=== PATIENT | female | born 1990 | race Caucasian/White ===

== ENCOUNTER 2020-12-16 06:44 | Inpatient (IN) | payer MEDICAID ==
[~2020-12-16] VITALS: Ht 165.1 cm; Wt 51.4 kg
[2020-12-16 07:22] LABS: CLARITY,URINE CLEAR (Clear); COLOR,URINE YELLOW (Yellow); GLUCOSE, URINE NEGATIVE (Neg); KETONES,URINE TRACE mg/dl (Neg); LEUKOCYTE ESTERASE ,URINE NEGATIVE (Neg); NITRITES, URINE NEGATIVE (Neg); OCCULT BLOOD,URINE SMALL (Neg); PH,URINE 6.5 (4.8-8.0); PROTEIN,URINE NEGATIVE (Neg); URINE HCG NEGATIVE (NEG); UROBILINOGEN,URINE 0.2 E.U/dL (0.2-1.0)
[2020-12-16 07:23] LABS: UA COLLECTION TYPE CLN CATCH MIDSTREAM
[2020-12-16 07:49] LABS: MUCUS STRANDS FEW /LPF (Neg); SQUAMOUS EPITHELIAL CELL,UR FEW /LPF (FEW)
[2020-12-16 07:51] LABS: BACTERIA,URINE FEW /HPF (Neg); RBC,URINE 0-2 /HPF (0-2); SPERM FEW /HPF; WBC,URINE NONE SEEN /HPF (0-4); YEAST FEW /HPF (NEGATIVE)
[2020-12-16] MEDS ORDERED: normal saline 1000ML IV soln IVB ONE (07:55)
[2020-12-16] MEDS ORDERED: ondansetron/PF 4mg/2ml inj IV ONE ×2 (07:55→13:35)
[2020-12-16 07:59] LABS: BASOPHILS % (AUTO) 0.2 % (0-1); EOSINOPHILS % (AUTO) 0.3 % (0-6); HEMATOCRIT 39.6 % (35.0-45.0); HEMOGLOBIN 13.7 g/dl (12.0-16.0); LYMPHOCYTES # (AUTO) 1.1 X10'3 (1.1-4.8); LYMPHOCYTES % (AUTO) 15.7 % (21-51); MEAN CORPUSCULAR HEMOGLOBIN 30.2 PG (27.0-31.0); MEAN CORPUSCULAR HGB CONC 34.4 g/dL (33.0-36.5); MEAN CORPUSCULAR VOLUME 87.6 FL (78-98); MEAN PLATELET VOLUME 7.2 FL (7.4-10.4); MONOCYTES # (AUTO) 0.4 X10'3 (0-0.9); MONOCYTES % (AUTO) 6.5 % (2-12); NEUTROPHILS # (AUTO) 5.3 X10'3 (1.8-7.7); NEUTROPHILS % (AUTO) 77.3 % (42-75); PLATELET COUNT 165 X10'3 (140-440); RED BLOOD COUNT 4.52 X10'6 (4.20-5.60); RED CELL DISTRIBUTION WIDTH 13.6 % (11.5-14.5); WHITE BLOOD COUNT 6.9 X10'3 (4.5-11.0)
[2020-12-16 08:05] LABS: ALANINE AMINOTRANSFERASE 41 U/L (12-78); ALBUMIN 4.1 G/DL (3.4-5.0); ALBUMIN/GLOBULIN RATIO 1.3 (1.1-1.5); ALKALINE PHOSPHATASE 29 IU/L (46-116); ANION GAP 12 (8-16); ASPARTATE AMINO TRANSFERASE 16 U/L (10-37); BILIRUBIN,TOTAL 0.7 MG/DL (0.1-1.0); BLOOD UREA NITROGEN 9 MG/DL (7-18); BUN/CREATININE RATIO 11.3 (6.6-38.0); CHLORIDE 103 MMOL/L (99-107); GLUCOSE 110 MG/DL (70-104); LIPASE 159 U/L (73-393); POTASSIUM 3.4 MMOL/L (3.5-5.1); SODIUM 140 MMOL/L (135-145); TOTAL CARBON DIOXIDE 24.7 MMOL/L (24-32); TOTAL PROTEIN 7.2 G/DL (6.4-8.2); eGFR 84 ML/MIN
[2020-12-16 10:45] LABS: MONOTEST NEGATIVE (Neg)
[2020-12-16] MEDS ORDERED: iohexol 300mg/ml 100ml inj. ONE (11:13)
[2020-12-16] MEDS ORDERED: ondansetron/PF 4mg/2ml inj IV PRN (11:20)
[2020-12-16] MEDS ORDERED: mag hydrox/Alum hydrox/simeth 30ml oral suspension PO PRN (11:20)
[2020-12-16] MEDS: sodium chloride 0.45% 1,000 ML IV SCH ×2 (11:20→13:28)
[2020-12-16] MEDS ORDERED: magnesium hydroxide 30ml (MOM) UD suspension PO PRN (11:20)
[2020-12-16] MEDS ORDERED: acetaminophen 325mg tablet PO PRN (11:20)
[2020-12-16] MEDS ORDERED: BISA10SU96 RC (11:49)
[2020-12-16] MEDS ORDERED: CYCL-1 PO (11:49)
[2020-12-16] MEDS ORDERED: DESO1TAB PO (11:49)
[2020-12-16] MEDS ORDERED: POLY510P31 PO (11:49)
[2020-12-16] MEDS ORDERED: MAGN296S70 PO (11:49)
[2020-12-16] MEDS ORDERED: IBUP-1986 PO (11:49)
[2020-12-16] MEDS ORDERED: ondansetron/PF 4mg/2ml inj IV STA (13:21)
[2020-12-16] MEDS ORDERED: morphine 4 MG/ML inj SYRINge IV STA (13:21)
--- NOTE | 2020-12-16 13:32 | NUR ---
patient screaming, excruciating upper abdominal pain and to chest,ekg stat done,obtained morphine 5mg and zofran 4mg iv.Dr. Maldonado made aware- contacted Dr. Dr. Alvarez,ordered to keep patient npo and to manage pain.
--- NOTE | 2020-12-16 13:34 | NUR ---
patient appeared to be in less pain at this time,still tearful.family at bedside.we will monitor.
[2020-12-16] MEDS ORDERED: fentaNYL/PF 50MCG/1 ML 2ML syringe IV ONE (13:35)
--- NOTE | 2020-12-16 13:55 | NUR ---
patient denies pain at this time.We will monitor.
[2020-12-16] MEDS: acetaminophen 325mg tablet PO SCH ×2 (14:00→20:00)
--- NOTE | 2020-12-16 14:35 | NUR ---
patient asleep we will monitor.
--- NOTE | 2020-12-16 14:58 | NUR ---
pt up in the bathroom.
--- NOTE | 2020-12-16 15:14 | NUR ---
fentanyl and zofran given.upper abdominal pain 01/06.
--- NOTE | 2020-12-16 15:25 | NUR ---
Report received from ED RNPorsha
--- NOTE | 2020-12-16 15:32 | NUR ---
Asked Dr. Lopez's recommendation if patient needing a repeat abdominal ct after sudden onset of severe abdominal pain,Md said as long as patient's vital signs are stable no need for a repeat ct and that Dr. Alvarez will see patient later today.
[2020-12-16 15:45] VITALS: BP 128/78
[2020-12-16] MEDS ORDERED: ketorolac trometh. 30mg/ml inj. IV SCH (16:00)
[2020-12-16 16:31] LABS: BASOPHILS % (AUTO) 0.2 % (0-1); EOSINOPHILS # (AUTO) 0.1 X10'3 (0-0.9); EOSINOPHILS % (AUTO) 1.1 % (0-6); HEMATOCRIT 37.9 % (35.0-45.0); HEMOGLOBIN 13.1 g/dl (12.0-16.0); LYMPHOCYTES % (AUTO) 24.1 % (21-51); MEAN CORPUSCULAR HEMOGLOBIN 30.2 PG (27.0-31.0); MEAN CORPUSCULAR HGB CONC 34.5 g/dL (33.0-36.5); MEAN CORPUSCULAR VOLUME 87.5 FL (78-98); MONOCYTES # (AUTO) 0.6 X10'3 (0-0.9); MONOCYTES % (AUTO) 7.3 % (2-12); NEUTROPHILS # (AUTO) 5.5 X10'3 (1.8-7.7); NEUTROPHILS % (AUTO) 67.3 % (42-75); PLATELET COUNT 189 X10'3 (140-440); RED BLOOD COUNT 4.34 X10'6 (4.20-5.60); RED CELL DISTRIBUTION WIDTH 13.7 % (11.5-14.5); WHITE BLOOD COUNT 8.1 X10'3 (4.5-11.0)
[2020-12-16] MEDS ORDERED: LORazepam 2 mg/ml vial IV ONE (16:55)
--- NOTE | 2020-12-16 18:15 | NUR ---
Patient in room [facility]. I have received report from KIM THOMPSON and had the opportunity to ask questions and assume patient care. Addendum: 12/17/20 at 0136 by Maryellen Varghese RN Amended: Links added.
--- NOTE | 2020-12-16 18:20 | NUR ---
Problems reprioritized. Patient report given, questions answered & plan of care reviewed with DONNA Bojorquez.
[2020-12-16] MEDS ORDERED: ringers solution, lacted 1,000 ML IV ONE (19:20)
--- NOTE | 2020-12-16 20:00 | NUR ---
pt very anxious aware going to surgery tomorrow with Dr Alvarez. orders recievd from him. pt did not want to take the tylenol but wanted the Ativan and iv Dilaudid for the pain. gave those to her. noted abd distended and pt stated uncomfortable.
[2020-12-16] MEDS: HYDROmorphone inj. 0.5 MG/0.5 ML DISP.SYRIN IV PRN (20:01)
[2020-12-16] MEDS: LORazepam 2 mg/ml vial IV PRN (20:01)
[2020-12-16] MEDS: dextrose 5%-lactated ringers 1,000 ML IV SCH (20:11)
--- NOTE | 2020-12-16 22:00 | NUR ---
pt resting eyes closed without s&s of distress at this time.
[2020-12-16 23:57] VITALS: BP 106/64
[2020-12-17] VITALS (22 sets, daily range): BP systolic 101–136; BP diastolic 57–90
[2020-12-17] MEDS: acetaminophen 325mg tablet PO SCH ×4 (02:00→19:22)
[2020-12-17] MEDS: LORazepam 2 mg/ml vial IV PRN ×3 (02:01→19:23)
[2020-12-17] MEDS: HYDROmorphone inj. 0.5 MG/0.5 ML DISP.SYRIN IV PRN ×2 (02:01→09:19)
[2020-12-17] MEDS: dextrose 5%-lactated ringers 1,000 ML IV SCH ×2 (04:36→14:15)
--- NOTE | 2020-12-17 05:25 | NUR ---
pt taken to the shower washed her hair. then when back to the room vitals done, lab in to draw her labs and abd araseli wiped. completed by 0550.
[2020-12-17 06:07] LABS: HEMOGLOBIN 13.5 g/dl (12.0-16.0); MEAN CORPUSCULAR HEMOGLOBIN 30.1 PG (27.0-31.0); MEAN CORPUSCULAR HGB CONC 34.5 g/dL (33.0-36.5); MEAN CORPUSCULAR VOLUME 87.3 FL (78-98); MEAN PLATELET VOLUME 6.9 FL (7.4-10.4); PLATELET COUNT 187 X10'3 (140-440); RED BLOOD COUNT 4.47 X10'6 (4.20-5.60); RED CELL DISTRIBUTION WIDTH 13.7 % (11.5-14.5); WHITE BLOOD COUNT 6.7 X10'3 (4.5-11.0)
--- NOTE | 2020-12-17 06:15 | NUR ---
Problems reprioritized. Patient report given, questions answered & plan of care reviewed with LIZZ THOMPSON. Addendum: 12/17/20 at 0616 by Maryellen Varghese RN Amended: Links added.
[2020-12-17 06:18] LABS: ALBUMIN 3.7 G/DL (3.4-5.0); ANION GAP 7 (8-16); BLOOD UREA NITROGEN 3 MG/DL (7-18); BUN/CREATININE RATIO 3.3 (6.6-38.0); CALCIUM 8.5 MG/DL (8.5-10.1); CHLORIDE 107 MMOL/L (99-107); CREATININE 0.91 MG/DL (0.40-0.90); GLUCOSE 99 MG/DL (70-104); POTASSIUM 3.7 MMOL/L (3.5-5.1); SODIUM 141 MMOL/L (135-145); eGFR 73 ML/MIN
--- NOTE | 2020-12-17 06:18 | NUR ---
Problems reprioritized. Patient report given, questions answered & plan of care reviewed with LIZZ THOMPSON. Addendum: 12/17/20 at 0619 by Maryellen Varghese RN Amended: Links added.
--- NOTE | 2020-12-17 06:41 | NUR ---
Patient in room [facility]. I have received report from Maryellen THOMPSON and had the opportunity to ask questions and assume patient care.
[2020-12-17] MEDS ORDERED: BUPIVAcaine/PF 2.5 mg/ml (0.25%) 30ml vial ONE (13:45)
[2020-12-17] MEDS ORDERED: LIDOcaine 1% 30ml preserv. free vial ONE (13:45)
[2020-12-17] MEDS ORDERED: midazolam 1 mg/ML 2ml injection ONE (14:10)
[2020-12-17] MEDS ORDERED: fentaNYL /PF 50mcg/ml 5ml ampule ONE (14:10)
[2020-12-17] MEDS ORDERED: LIDOcaine 2% (20mg/ml) 5ml vial ONE (14:18)
[2020-12-17] MEDS ORDERED: propofol inj 20 ML IV ONE (14:18)
[2020-12-17] MEDS ORDERED: rocuronium 10mg/ml inj IV ONE (14:18)
[2020-12-17] MEDS ORDERED: ondansetron/PF 4mg/2ml inj ONE (14:23)
[2020-12-17] MEDS ORDERED: ceFAZolin 1000mg inj ONE ×2 (14:31)
[2020-12-17] MEDS ORDERED: morphine 2 MG/ML inj. syringe IV PRN (14:55)
[2020-12-17] MEDS ORDERED: ondansetron/PF 4mg/2ml inj IV PRN ×2 (14:55→16:50)
[2020-12-17] MEDS ORDERED: meperidine/PF 25mg/ml syringe IV PRN ×2 (14:55)
[2020-12-17] MEDS ORDERED: proCHLORperazine 10 MG/2 ml inj IV PRN (14:55)
[2020-12-17] MEDS ORDERED: ringers solution, lacted 1,000 ML IV SCH (14:55)
[2020-12-17] MEDS ORDERED: morphine 4 MG/ML inj SYRINge IV PRN (14:55)
[2020-12-17] MEDS ORDERED: INDOCYANINE GREEN 25 MG/10 ML VIAL IV ONE (14:59)
--- NOTE | 2020-12-17 16:48 | NUR ---
Received from OR via BED, accompanied by Anesthesiologist NAS and report given by Anesthesiolgist. PT. ARRIVED AEAKE AND TALKING, O2 AT 10 L VIA MASK. REPORTS PAIN 10/10 IN ABDOMEN AND SHOULDER. PRN DEMEROL GIVEN ORDERED. IV IN R. FA 20 G CDI. LR INFUSING AT 100 ML/HR. FC DRAINING TO GRAVITY WITH 150 ML CLEAR YELLOW URINE. JOSE DRAIN IN L. SIDE OF ABDOMEN WITH BANDAID FOR DRESSING. 3 OTHER INCISION SITES WITH DERMABOND ON ABDOMEN. NO DRAINAGE NOTED. VSS. MOVES ALL EXTREMITIES WITH SENSATION INTACT. PALPABLE PULSES IN ALL EXTREMITIES. Addendum: 12/17/20 at 1719 by Carito Denis RN Amended: Links added.
[2020-12-17] MEDS: HYDROmorph./NS 0.2 mg/ml CADD 100 ML IV SCH ×5 (16:50→23:00)
[2020-12-17] MEDS ORDERED: CADD PCA waste documentation MC PRN (16:50)
[2020-12-17] MEDS ORDERED: zolpidem 5mg tablet PO PRN (16:50)
[2020-12-17] MEDS ORDERED: naloxone 0.4 mg/ml inj IV PRN (16:50)
[2020-12-17] MEDS: meperidine/PF 25mg/ml syringe IV PRN ×2 (16:58→17:20)
[2020-12-17] MEDS ORDERED: acetaminophen 1,000mg/100ml IV 100 ML IV SCH (17:24)
--- NOTE | 2020-12-17 17:58 | NUR ---
REPORTED CALLED TO LIZZ RN. PT. HAS MET DC CRITERIA. PAIN 10/07. CADD PUMP IN PLACE AND FUNCTIONING. PT. EDUCATION GIVEN. FC DRAINING TO GRAVITY 250 ML CLEAR YELLOW URINE NOTED. JOSE DRAIN IN PLACE SCANT DRAINAGE NOTED. INCISION SITES CDI, NO DRAINAGE NOTED. LR INFUSING AT 100 ML/HR. TYLENOL 1000MG GIVEN EARLIER ALONG WITH 2 DOSES 25 MG DEMEROL. O2 AT 2 L NC FOR COMFORT. PT. VSS. PT. TOLERATED TRANSFER WELL. HAND OFF TO LIZZ. BED IN LOWEST POSITION. SIDE RAILS X 2. CALL LIGHT IN REACH. MOM AT BEDSIDE. Addendum: 12/17/20 at 1813 by Carito Denis RN Amended: Links added.
--- NOTE | 2020-12-17 18:48 | NUR ---
Problems reprioritized. Patient report given, questions answered & plan of care reviewed with FLORY THOMPSON.
--- NOTE | 2020-12-17 18:59 | NUR ---
Patient in room PACU 2. I have received report from LIZZ THOMPSON and had the opportunity to ask questions and assume patient care. Addendum: 12/17/20 at 1859 by Maryellen Varghese RN Amended: Links added.
--- NOTE | 2020-12-17 19:00 | NUR ---
SOON mOM AND BOYFRIEND LEFT PT BEGAN CRING EPISODE STATING SHE CAN'T BREATHE. HAVING A PANIC ATTACK. OBTAINED TYLENOL AND ATIVAN ORDERED NOT LONG AFTER THEY LEFT. CONTINUE TO DO POST OP CARE TEACHING WITH THE PT.
--- NOTE | 2020-12-17 19:25 | NUR ---
PT MEDICATED WITH ATIVAN FOR THE ANXIETY AND TYLENOL ORDERED. PT TOOK WITH SIP OF WATER AND TOLERATED WELL. TEACHING ON THE DILADID CADD DONE WELL.
[2020-12-18] VITALS: BP 100/52
[2020-12-18] MEDS: HYDROmorph./NS 0.2 mg/ml CADD 100 ML IV SCH ×13 (01:00→23:00)
[2020-12-18] MEDS: dextrose 5%-lactated ringers 1,000 ML IV SCH ×3 (01:21→21:41)
[2020-12-18 01:45] VITALS: BP 95/53
--- NOTE | 2020-12-18 02:35 | NUR ---
pt took po tylenol assisted in sitting up on the edge of the bed. then stood up and [id number] feet. pt cramped up like her knees where going to buckle and ambulated back to the room. pt using Dilaudid cadd she had a bolus .04 bolus Dilaudid prior to this to help with pain, and encouraged to use the Dilaudid cadd. post op care teaching done. noted pt had some spotting like a menstrual type. she said that is not uncommon when she misses a dose of her control pills. teaching done on why it is so important for her to walk with assistance.
[2020-12-18] MEDS: acetaminophen 325mg tablet PO SCH ×4 (02:47→19:39)
[2020-12-18] MEDS: LORazepam 2 mg/ml vial IV PRN ×6 (03:15→22:49)
--- NOTE | 2020-12-18 06:07 | NUR ---
Problems reprioritized. Patient report given, questions answered & plan of care reviewed with LIZZ THOMPSON. Addendum: 12/18/20 at 0607 by Maryellen Varghese RN Amended: Links added.
[2020-12-18 06:14] LABS: ALBUMIN 3.1 G/DL (3.4-5.0); ANION GAP 9 (8-16); BLOOD UREA NITROGEN 4 MG/DL (7-18); BUN/CREATININE RATIO 5.5 (6.6-38.0); CALCIUM 8.2 MG/DL (8.5-10.1); CHLORIDE 107 MMOL/L (99-107); CREATININE 0.73 MG/DL (0.40-0.90); GLUCOSE 117 MG/DL (70-104); POTASSIUM 3.8 MMOL/L (3.5-5.1); SODIUM 141 MMOL/L (135-145); TOTAL CARBON DIOXIDE 25.3 MMOL/L (24-32); eGFR > 90 ML/MIN
[2020-12-18 06:36] LABS: BASOPHILS % (AUTO) 0.1 % (0-1); EOSINOPHILS % (AUTO) 0.1 % (0-6); HEMATOCRIT 32.7 % (35.0-45.0); HEMOGLOBIN 11.7 g/dl (12.0-16.0); LYMPHOCYTES # (AUTO) 1.1 X10'3 (1.1-4.8); LYMPHOCYTES % (AUTO) 13.1 % (21-51); MEAN CORPUSCULAR HGB CONC 35.9 g/dL (33.0-36.5); MEAN CORPUSCULAR VOLUME 86.3 FL (78-98); MONOCYTES # (AUTO) 0.5 X10'3 (0-0.9); MONOCYTES % (AUTO) 6.3 % (2-12); NEUTROPHILS # (AUTO) 6.5 X10'3 (1.8-7.7); NEUTROPHILS % (AUTO) 80.4 % (42-75); PLATELET COUNT 159 X10'3 (140-440); RED BLOOD COUNT 3.79 X10'6 (4.20-5.60); RED CELL DISTRIBUTION WIDTH 13.5 % (11.5-14.5)
--- NOTE | 2020-12-18 06:54 | NUR ---
Patient in room [facility]. I have received report from FLORY THOMPSON and had the opportunity to ask questions and assume patient care.
[2020-12-18 07:00] VITALS: BP 118/75
[2020-12-18 11:31] VITALS: BP 103/64
--- NOTE | 2020-12-18 12:00 | NUR ---
PATIENT CONTINUED TO BE IN PAIN DURING THE MORNING HOURS PATIENT HAD COVERAGE AT TIME BUT PAIN MORE OUT OF CONTROL THAN IN CONTROL. WHILE ADJUSTING THE DEMAND DOSE SET FOR THE PATIENT OF .2MG TO .3MG ORDER BY REFLEX PROTOCOL IT WAS FOUND THE DOSE DEMAND WAS SET FOR .02MG. THIS WAS NOT FOUND UNTIL ATTEMPTING TO CHANGE DOSE. PATIENT AWARE OF SITUATION. MEDICATIONS WAS INCREASE TO ORDERED DEMAND DOSE AND WILL EVALUATE PATIENT ACCORDINGLY.
[2020-12-18 18:47] VITALS: BP 75/61
--- NOTE | 2020-12-18 18:57 | NUR ---
Problems reprioritized. Patient report given, questions answered & plan of care reviewed with ANNIE THOMPSON.
--- NOTE | 2020-12-18 18:58 | NUR ---
Patient in room [facility]. I have received report from LIZZ THOMPSON and had the opportunity to ask questions and assume patient care.
[2020-12-18 19:00] VITALS: BP 107/66
[2020-12-19 01:00] VITALS: BP 97/56
[2020-12-19] MEDS: HYDROmorph./NS 0.2 mg/ml CADD 100 ML IV SCH ×9 (01:00→17:00)
[2020-12-19] MEDS: acetaminophen 325mg tablet PO SCH ×3 (02:00→14:11)
[2020-12-19] MEDS: LORazepam 2 mg/ml vial IV PRN ×2 (03:02→23:58)
[2020-12-19 06:09] LABS: BASOPHILS % (AUTO) 0.3 % (0-1); EOSINOPHILS # (AUTO) 0.1 X10'3 (0-0.9); EOSINOPHILS % (AUTO) 2.2 % (0-6); HEMATOCRIT 33.7 % (35.0-45.0); HEMOGLOBIN 11.7 g/dl (12.0-16.0); LYMPHOCYTES # (AUTO) 1.8 X10'3 (1.1-4.8); MEAN CORPUSCULAR HEMOGLOBIN 30.4 PG (27.0-31.0); MEAN CORPUSCULAR HGB CONC 34.7 g/dL (33.0-36.5); MEAN CORPUSCULAR VOLUME 87.5 FL (78-98); MEAN PLATELET VOLUME 6.9 FL (7.4-10.4); MONOCYTES # (AUTO) 0.5 X10'3 (0-0.9); MONOCYTES % (AUTO) 9.2 % (2-12); NEUTROPHILS # (AUTO) 3.4 X10'3 (1.8-7.7); NEUTROPHILS % (AUTO) 57.3 % (42-75); PLATELET COUNT 150 X10'3 (140-440); RED BLOOD COUNT 3.85 X10'6 (4.20-5.60); RED CELL DISTRIBUTION WIDTH 13.7 % (11.5-14.5); WHITE BLOOD COUNT 5.9 X10'3 (4.5-11.0)
[2020-12-19 06:19] LABS: ALBUMIN 3.1 G/DL (3.4-5.0); ANION GAP 5 (8-16); BLOOD UREA NITROGEN 3 MG/DL (7-18); BUN/CREATININE RATIO 3.9 (6.6-38.0); CALCIUM 7.9 MG/DL (8.5-10.1); CHLORIDE 106 MMOL/L (99-107); CREATININE 0.77 MG/DL (0.40-0.90); GLUCOSE 110 MG/DL (70-104); POTASSIUM 3.2 MMOL/L (3.5-5.1); SODIUM 141 MMOL/L (135-145); TOTAL CARBON DIOXIDE 30.4 MMOL/L (24-32); eGFR 88 ML/MIN
[2020-12-19] MEDS: dextrose 5%-lactated ringers 1,000 ML IV SCH (07:31)
[2020-12-19 09:13] VITALS: BP 115/74
--- NOTE | 2020-12-19 10:46 | NUR ---
PAGER ID: [phone] MESSAGE: Bryon [place] [id number] refused vascular study [place] [phone]
[2020-12-19] MEDS: ketorolac tromethamine 15mg/ml inj. IV SCH ×3 (11:12→20:25)
[2020-12-19 11:33] VITALS: BP 108/71
--- NOTE | 2020-12-19 11:34 | NUR ---
Dr. Alvarez notified of patients K+ of 3.2, declined replacement protocol orders.
[2020-12-19 18:00] VITALS: BP 126/84
--- NOTE | 2020-12-19 18:19 | NUR ---
Patient in room [facility]. I have received report from DONNA Whitmore and had the opportunity to ask questions and assume patient care.
--- NOTE | 2020-12-19 18:20 | NUR ---
Problems reprioritized. Patient report given, questions answered & plan of care reviewed with Damaris Beaulieu RN.
[2020-12-19] MEDS ORDERED: oxyCODONE/APAP 5-325mg tablet PO PRN (18:25)
--- NOTE | 2020-12-19 18:30 | NUR ---
Patient in room [facility]. I have received report from DONNA Whitmore and had the opportunity to ask questions and assume patient care.
[2020-12-19] MEDS: oxyCODONE/APAP 5-325mg tablet PO PRN (22:01)
--- NOTE | 2020-12-19 23:25 | NUR ---
Patient back from OR on bed
[2020-12-20] VITALS: BP 120/75
[2020-12-20 01:08] VITALS: BP 120/75
[2020-12-20] MEDS: ketorolac tromethamine 15mg/ml inj. IV SCH ×2 (02:49→07:18)
[2020-12-20 06:00] LABS: BASOPHILS % (AUTO) 0.3 % (0-1); EOSINOPHILS # (AUTO) 0.3 X10'3 (0-0.9); EOSINOPHILS % (AUTO) 4.3 % (0-6); HEMATOCRIT 33.3 % (35.0-45.0); HEMOGLOBIN 11.8 g/dl (12.0-16.0); LYMPHOCYTES # (AUTO) 1.7 X10'3 (1.1-4.8); LYMPHOCYTES % (AUTO) 29.4 % (21-51); MEAN CORPUSCULAR HEMOGLOBIN 30.7 PG (27.0-31.0); MEAN CORPUSCULAR HGB CONC 35.5 g/dL (33.0-36.5); MEAN CORPUSCULAR VOLUME 86.6 FL (78-98); MEAN PLATELET VOLUME 6.6 FL (7.4-10.4); MONOCYTES # (AUTO) 0.5 X10'3 (0-0.9); MONOCYTES % (AUTO) 8.9 % (2-12); NEUTROPHILS # (AUTO) 3.4 X10'3 (1.8-7.7); NEUTROPHILS % (AUTO) 57.1 % (42-75); PLATELET COUNT 159 X10'3 (140-440); RED BLOOD COUNT 3.85 X10'6 (4.20-5.60); RED CELL DISTRIBUTION WIDTH 13.6 % (11.5-14.5); WHITE BLOOD COUNT 5.9 X10'3 (4.5-11.0)
[2020-12-20 06:09] LABS: ALBUMIN 3.3 G/DL (3.4-5.0); ANION GAP 5 (8-16); BLOOD UREA NITROGEN 6 MG/DL (7-18); BUN/CREATININE RATIO 8.5 (6.6-38.0); CALCIUM 8.6 MG/DL (8.5-10.1); CHLORIDE 106 MMOL/L (99-107); CREATININE 0.71 MG/DL (0.40-0.90); GLUCOSE 95 MG/DL (70-104); POTASSIUM 3.9 MMOL/L (3.5-5.1); SODIUM 142 MMOL/L (135-145); eGFR > 90 ML/MIN
--- NOTE | 2020-12-20 06:18 | NUR ---
Problems reprioritized. Patient report given, questions answered & plan of care reviewed with DONNA Whitmore.
[2020-12-20] MEDS: oxyCODONE/APAP 5-325mg tablet PO PRN (07:18)
[2020-12-20 08:00] VITALS: BP 123/79
[2020-12-20] MEDS ORDERED: magnesium hydroxide 30ml (MOM) UD suspension PO ONE (10:50)
[2020-12-20] MEDS ORDERED: PER5325T PO (10:54)
== END 2020-12-20 11:49 | disposition home or self-care (01) | DRG 650 ==
LOC: ER 06:46 → ED HOLD 11:18 → SUR 3N 15:40 → PACU 12-17 13:00 → SUR 3N 12-17 18:00
PROVIDERS: ADMIT Surgery; ATTEND Surgery
PROC: BW211ZZ Computerized Tomography (CT Scan) of Abdomen and Pelvis using Low Osmolar Contrast (ICD-10-PCS; 2020-12-16)
PROC: 8E0W4CZ Robotic Assisted Procedure of Trunk Region, Percutaneous Endoscopic Approach (ICD-10-PCS; 2020-12-17)
PROC: 07BP4ZZ Excision of Spleen, Percutaneous Endoscopic Approach (ICD-10-PCS; principal; 2020-12-17 13:55)
DX: D73.4 Cyst of spleen (principal); R18.8 Other ascites; K56.7 Ileus, unspecified; S36.09XA Other injury of spleen, initial encounter; Z20.822 Contact with and (suspected) exposure to COVID-19; X58.XXXA Exposure to other specified factors, initial encounter; Z88.0 Allergy status to penicillin; Y93.89 Activity, other specified; Y92.89 Other specified places as the place of occurrence of the external cause; Y99.8 Other external cause status
CPT/HCPCS: 36415; 71045; 74176; 74177; 80048; 80053; 81001; 81025; 82948; 83690; 85025; 85027; 86308; 86885; 86900; 86901; 87081; 87635; 93005; 96361; 96374; 99285; A4618; A7000; C9803; G0378; J0131; J0690; J1170; J1885; J2001; J2060; J2175; J2250; J2270; J2405; J2704; J3010; J3490; J7030; J7120; J7121; Q9967

== ENCOUNTER 2022-08-31 11:14 | Emergency (ER) | payer MEDICAID ==
[~2022-08-31 11:14] MED LIST: DESO1TAB PO; MAGN296S89 PO; PER5325T PO; POLY510P31 PO
--- NOTE | 2022-08-31 11:47 | NUR ---
GOING TO [facility] FOR ECTOPIC ,INFORMED THAT WE CAN STILL SEE YOU IF NEEDED FURTHER WORKUP WE DO NOT HAVE OBGYN PROVIDER ,STATED SHE WILL RATHER GO TO [facility].
== END 2022-08-31 11:49 | disposition left against medical advice (07) ==
LOC: ER 11:14
DX: O26.899 Other specified pregnancy related conditions, unspecified trimester (principal); Z53.21 Procedure and treatment not carried out due to patient leaving prior to being seen by health care provider